=== PATIENT | male | born 1935 | race Two or more races ===

== ENCOUNTER 2021-08-02 09:36 | Emergency (ER) | payer OTHER ==
[~2021-08-02] VITALS: Ht 180.3 cm; Wt 90.7 kg
[2021-08-02] MEDS ORDERED: JANTOVEN7.5 MG PO (10:07)
[2021-08-02] MEDS ORDERED: GLIMEPIRIDE4 M1 PO (10:07)
[2021-08-02] MEDS ORDERED: COZAAR100 MG PO (10:08)
[2021-08-02] MEDS ORDERED: JENTADUETO 2.51 EAC2 PO (10:08)
[2021-08-02] MEDS ORDERED: SIMVASTATIN20 MG PO (10:08)
[2021-08-02] MEDS ORDERED: FINASTERIDE5 MG PO (10:09)
== END 2021-08-02 11:57 | disposition home or self-care (01) ==
LOC: ER 09:36
DX: L03.116 Cellulitis of left lower limb (principal); S93.492A Sprain of other ligament of left ankle, initial encounter; E11.9 Type 2 diabetes mellitus without complications; Z79.899 Other long term (current) drug therapy; I10 Essential (primary) hypertension

== ENCOUNTER 2021-12-19 19:38 | Emergency (ER) | payer OTHER ==
[~2021-12-19] VITALS: Ht 180.3 cm; Wt 89.4 kg
[~2021-12-19 19:38] MED LIST: COZAAR100 MG PO; FINASTERIDE5 MG PO; GLIMEPIRIDE4 M1 PO; JANTOVEN7.5 MG PO; JENTADUETO 2.51 EAC2 PO; SIMVASTATIN20 MG PO
[2021-12-19] MEDS ORDERED: GLIPIZIDE ER5 MG PO (20:38)
== END 2021-12-20 00:13 | disposition home or self-care (01) ==
LOC: ER 19:38
DX: I89.0 Lymphedema, not elsewhere classified (principal)

== ENCOUNTER 2023-02-13 18:15 | Emergency (ER) | payer OTHER ==
[~2023-02-13] VITALS: Ht 180.3 cm; Wt 79.8 kg
[~2023-02-13 18:15] MED LIST changes: +COZAAR50 MG PO; +ELIQUIS2.5 MG PO; +GLIPIZIDE ER5 MG PO; +HYDRALAZIN20 MG/1 ML IM
== END 2023-02-13 20:55 | disposition home or self-care (01) ==
LOC: ER 18:15
DX: I10 Essential (primary) hypertension (principal); Z87.438 Personal history of other diseases of male genital organs

== ENCOUNTER → 2023-06-01 | Emergency (ER) | payer OTHER ==
[~2023-06-01] VITALS: Ht 180.3 cm; Wt 83.5 kg
[~2023-06-01] MED LIST changes: +0.9 % SODIUM CHLORIDE 500 ML IV STA; +KETOROLAC TROMETHAMINE 30 MG VIAL IV STA; +MEPERIDINE HCL/PF 50 MG/ML VIAL IM STA; +PROMETHAZINE HCL 50 MG/ML AMPUL IM STA
[2023-06-01 17:07] LABS: HEMATOCRIT 36.7 % (39.0-48.0); HEMOGLOBIN 12.2 g/dL (13-16.00); MEAN CELL VOLUME 86.3 fL (80.0-100.00); MEAN CORPUSCULAR HEMOGLOBIN 28.8 pg (27.00-32.0); MEAN CORPUSCULAR HGB CONC 33.3 g/dl (32.0-36.0); PLATELET COUNT 260 K/uL (150-450); RED BLOOD COUNT 4.26 M/uL (4.00-6.00); RED CELL DISTRIBUTION WIDTH 14.2 % (11.5-14.5)
[2023-06-01 17:20] LABS: INR 1.05
[2023-06-01 17:22] LABS: ALBUMIN 3.6 gm/dL (3.4-5.0); BILIRUBIN TOTAL 0.7 mg/dL (0.3-1.2); CALCIUM 8.7 mg/dL (8.5-10.1); CREATININE SERUM 1.28 mg/dL (0.70-1.30); GFR 53.29; GLOBULINA 4.2 G/DL (2.4-3.5); POTASSIUM 4.41 mEq/L (3.5-5.1); TOTAL PROTEIN 7.8 gm/dL (6.4-8.2)
== END | disposition left against medical advice (07) ==
LOC: ER 13:05
DX: R31.9 Hematuria, unspecified (principal); R10.31 Right lower quadrant pain; K40.90 Unilateral inguinal hernia, without obstruction or gangrene, not specified as recurrent
CPT/HCPCS: 36415; 74176; 96365; 96366; 96372; 99284; J1885; J2250; J3490; J7042

== ENCOUNTER 2023-06-05 18:02 | Inpatient (IN) | payer OTHER ==
[~2023-06-05] VITALS: Ht 180.3 cm; Wt 79.8 kg
[~2023-06-05 18:02] MED LIST changes: -0.9 % SODIUM CHLORIDE 500 ML IV STA; -KETOROLAC TROMETHAMINE 30 MG VIAL IV STA; -MEPERIDINE HCL/PF 50 MG/ML VIAL IM STA; -PROMETHAZINE HCL 50 MG/ML AMPUL IM STA
[2023-06-05] MEDS ORDERED: 0.9 % SODIUM CHLORIDE 1,000 ML IV SCH ×2 (18:25→22:15)
[2023-06-05] MEDS ORDERED: CIPROFLOXACIN IN 5 % DEXTROSE 400 MG/200 ML PIGGYBAG IV ONE (18:30)
[2023-06-05] MEDS ORDERED: TAMSULOSIN HCL 0.4 MG CAP PO ONE (18:30)
[2023-06-05 19:32] LABS: MEAN CELL VOLUME 89.3 fL (80.0-100.00); MEAN CORPUSCULAR HGB CONC 33.3 g/dl (32.0-36.0); RED BLOOD COUNT 2.18 M/uL (4.00-6.00)
[2023-06-05 19:40] LABS: MEAN CORPUSCULAR HEMOGLOBIN 29.8 pg (27.00-32.0)
[2023-06-05 19:41] LABS: HEMOGLOBIN 6.5 g/dL (13-16.00)
[2023-06-05 19:42] LABS: HEMATOCRIT 19.5 % (39.0-48.0)
[2023-06-05 19:43] LABS: INR 1.05; PARTIAL THROMBOPLASTIN TIME 23.9 SECONDS (22.0-34.0)
[2023-06-05 19:45] LABS: CREATININE SERUM 2.27 mg/dL (0.70-1.30); GFR 27.51; POTASSIUM 4.65 mEq/L (3.5-5.1)
[2023-06-05 20:03] LABS: PLATELET COUNT 254 K/uL (150-450)
[2023-06-05] MEDS ORDERED: FAMOTIDINE/PF 20 MG/2 ML VIAL IV SCH (22:02)
[2023-06-05] MEDS ORDERED: CEFTRIAXONE SODIUM 2,000 MG in 0.9 % SODIUM CHLORIDE 100 ML IV SCH (22:14)
[2023-06-05] MEDS ORDERED: ONDANSETRON HCL 4 MG in 0.9 % SODIUM CHLORIDE 50 ML IV PRN (22:15)
[2023-06-05] MEDS ORDERED: DEXTROSE 50 % IN WATER 0.5 G/ML DISP.SYRIN IV PRN (22:15)
[2023-06-05] MEDS ORDERED: INSULIN LISPRO 1,000 UNIT/10 ML UNITS SUBCUTANEO PRN (22:15)
[2023-06-05] MEDS ORDERED: ENALAPRILAT DIHYDRATE 1.25 MG/ML VIAL IV PRN (22:30)
[2023-06-05 23:47] LABS: MAGNESIUM 2.6 mg/dL (1.8-2.4)
[2023-06-06] LABS: C-REACTIVE PROTEIN 3.68 MG/DL (0.00-0.29); CKMB 6.5 NG/ML (0.5-3.6)
[2023-06-06 03:46] LABS: URINE APPEARANCE Turbid; URINE BILIRRUBIN Small (NEGATIVE); URINE BLOOD Trace; URINE COLOR Red; URINE GLUCOSE Negative (NEGATIVE); URINE LEUKOCYTE Large; URINE NITRATE Positive; URINE PROTEIN Trace (NEGATIVE); URINE UROBILINOGEN 0.2 E.U./dl
[2023-06-06 04:05] LABS: URINE RBC LOADED /HPF
[2023-06-06 04:09] LABS: URINE BACTERIA MANY
[2023-06-06 04:12] LABS: URINE WBC 31-40 /hpf
[2023-06-06] MEDS ORDERED: INSULIN GLARGINE,HUM.REC.ANLOG 1,000 UNITS/10 ML UNITS SUBCUTANEO SCH (14:25)
[2023-06-06] MEDS ORDERED: HALOPERIDOL LACTATE 5 MG/ML AMPUL IV PRN (20:00)
[2023-06-07] MEDS ORDERED: CHLORHEXIDINE GLUCONATE 120 ML BOTTLE TOP ONE (08:49)
[2023-06-07 17:12] LABS: HEMATOCRIT 27.2 % (39.0-48.0); MEAN CORPUSCULAR HGB CONC 33.8 g/dl (32.0-36.0); PLATELET COUNT 250 K/uL (150-450); RED BLOOD COUNT 3.13 M/uL (4.00-6.00); RED CELL DISTRIBUTION WIDTH 15.1 % (11.5-14.5)
[2023-06-07 17:51] LABS: HEMOGLOBIN 9.2 g/dL (13-16.00); MEAN CORPUSCULAR HEMOGLOBIN 29.3 pg (27.00-32.0)
[2023-06-08] MEDS ORDERED: hydrALAZINE HCL 20 MG VIAL IV PRN (04:30)
[2023-06-08] MEDS ORDERED: FAMOTIDINE/PF 20 MG/2 ML VIAL IV SCH (09:00)
[2023-06-08] MEDS ORDERED: hydrALAZINE HCL 25 MG TABLET PO SCH ×2 (10:11→21:00)
[2023-06-08 12:07] LABS: HEMATOCRIT 29.3 % (39.0-48.0); MEAN CELL VOLUME 86.8 fL (80.0-100.00); MEAN CORPUSCULAR HEMOGLOBIN 29.5 pg (27.00-32.0); PLATELET COUNT 239 K/uL (150-450); RED BLOOD COUNT 3.38 M/uL (4.00-6.00); RED CELL DISTRIBUTION WIDTH 15.4 % (11.5-14.5)
[2023-06-08 12:39] LABS: ALBUMIN 2.4 gm/dL (3.4-5.0); BILIRUBIN TOTAL 0.44 mg/dL (0.3-1.2); CALCIUM 7.9 mg/dL (8.5-10.1); CREATININE SERUM 1.32 mg/dL (0.70-1.30); GFR 51.43; GLOBULINA 2.9 G/DL (2.4-3.5); POTASSIUM 3.91 mEq/L (3.5-5.1); TOTAL PROTEIN 5.3 gm/dL (6.4-8.2)
[2023-06-08] MEDS ORDERED: SODIUM CHLORIDE 0.45 % 1,000 ML IV SCH (18:00)
[2023-06-09 07:08] LABS: HEMATOCRIT 27.2 % (39.0-48.0); MEAN CELL VOLUME 87.7 fL (80.0-100.00); MEAN CORPUSCULAR HGB CONC 34.5 g/dl (32.0-36.0); PLATELET COUNT 232 K/uL (150-450); RED CELL DISTRIBUTION WIDTH 14.9 % (11.5-14.5)
[2023-06-09 07:12] LABS: HEMOGLOBIN 9.4 g/dL (13-16.00); MEAN CORPUSCULAR HEMOGLOBIN 30.3 pg (27.00-32.0)
[2023-06-09 07:35] LABS: ALBUMIN 2.3 gm/dL (3.4-5.0); CALCIUM 7.6 mg/dL (8.5-10.1); CREATININE SERUM 1.03 mg/dL (0.70-1.30); GFR 68.47; PHOSPHOROUS 2.6 mg/dL (2.5-4.9); POTASSIUM 3.96 mEq/L (3.5-5.1)
[2023-06-09] MEDS ORDERED: AMLODIPINE BESYLATE 5 MG TABLET PO SCH (18:23)
[2023-06-10 06:33] LABS: HEMATOCRIT 26.8 % (39.0-48.0); MEAN CELL VOLUME 88.1 fL (80.0-100.00); MEAN CORPUSCULAR HGB CONC 34.4 g/dl (32.0-36.0); PLATELET COUNT 246 K/uL (150-450); RED BLOOD COUNT 3.04 M/uL (4.00-6.00)
[2023-06-10 06:43] LABS: HEMOGLOBIN 9.2 g/dL (13-16.00); MEAN CORPUSCULAR HEMOGLOBIN 30.2 pg (27.00-32.0)
[2023-06-10 07:05] LABS: ALBUMIN 2.2 gm/dL (3.4-5.0); CALCIUM 7.8 mg/dL (8.5-10.1); CREATININE SERUM 0.99 mg/dL (0.70-1.30); GFR 71.67; PHOSPHOROUS 2.6 mg/dL (2.5-4.9); POTASSIUM 4.17 mEq/L (3.5-5.1)
[2023-06-10] MEDS ORDERED: FAMOTIDINE/PF 20 MG/2 ML VIAL IV SCH (17:00)
[2023-06-10] MEDS ORDERED: AMLODIPINE BESYLATE 5 MG TABLET PO SCH (17:00)
[2023-06-12] MEDS ORDERED: INSULIN LISPRO 1,000 UNIT/10 ML UNITS SUBCUTANEO PRN (12:30)
[2023-06-12] MEDS ORDERED: DEXTROSE 50 % IN WATER 0.5 G/ML DISP.SYRIN IV PRN (12:30)
[2023-06-13 11:58] LABS: HEMATOCRIT 28.9 % (39.0-48.0); HEMOGLOBIN 9.4 g/dL (13-16.00); MEAN CELL VOLUME 88.5 fL (80.0-100.00); MEAN CORPUSCULAR HEMOGLOBIN 28.7 pg (27.00-32.0); MEAN CORPUSCULAR HGB CONC 32.4 g/dl (32.0-36.0); PLATELET COUNT 248 K/uL (150-450); RED BLOOD COUNT 3.26 M/uL (4.00-6.00); RED CELL DISTRIBUTION WIDTH 15.3 % (11.5-14.5)
[2023-06-14] MEDS ORDERED: CEFTRIAXONE SODIUM 2,000 MG in 0.9 % SODIUM CHLORIDE 100 ML IV SCH (04:46)
[2023-06-14 06:23] LABS: PH,URINE 7.5 (5.0-8.0); URINE APPEARANCE Clear; URINE BILIRRUBIN Negative (NEGATIVE); URINE BLOOD Moderate; URINE COLOR Yellow; URINE GLUCOSE Negative (NEGATIVE); URINE LEUKOCYTE Moderate; URINE NITRATE Negative; URINE PROTEIN 30 (NEGATIVE); URINE UROBILINOGEN 0.2 E.U./dl
[2023-06-14 06:25] LABS: URINE EPITHELIAL CELLS 2.6 uL (0.0-38.8); URINE RBC 143.4 uL (0.0-20.8); URINE WBC 138.3 uL (0.0-23.2)
[2023-06-14 06:27] LABS: HEMATOCRIT 28.4 % (39.0-48.0); MEAN CELL VOLUME 87.5 fL (80.0-100.00); MEAN CORPUSCULAR HEMOGLOBIN 29.2 pg (27.00-32.0); MEAN CORPUSCULAR HGB CONC 33.4 g/dl (32.0-36.0); PLATELET COUNT 258 K/uL (150-450); RED BLOOD COUNT 3.25 M/uL (4.00-6.00); RED CELL DISTRIBUTION WIDTH 15.3 % (11.5-14.5)
[2023-06-14 06:29] LABS: HEMOGLOBIN 9.5 g/dL (13-16.00)
[2023-06-14] MEDS ORDERED: DOCUSATE CALCIUM 240 MG CAPSULE PO SCH (13:06)
[2023-06-14] MEDS ORDERED: FAMOtidine 20 MG TABLET PO SCH (17:00)
[2023-06-15] MEDS ORDERED: LACTULOSE 20 G/30 ML BLIST.PACK PO SCH (15:52)
[2023-06-15] MEDS ORDERED: MAGNESIUM HYDROXIDE 30 ML BLIST.PACK PO ONE (16:00)
[2023-06-15] MEDS ORDERED: MINERAL OIL 30 ML BLIST.PACK PO ONE (16:00)
[2023-06-16 05:07] LABS: HEMATOCRIT 30.4 % (39.0-48.0); MEAN CELL VOLUME 89.9 fL (80.0-100.00); MEAN CORPUSCULAR HEMOGLOBIN 29.8 pg (27.00-32.0); MEAN CORPUSCULAR HGB CONC 33.2 g/dl (32.0-36.0); PLATELET COUNT 269 K/uL (150-450); RED BLOOD COUNT 3.38 M/uL (4.00-6.00); RED CELL DISTRIBUTION WIDTH 15.2 % (11.5-14.5)
[2023-06-16 05:29] LABS: HEMOGLOBIN 10.1 g/dL (13-16.00)
[2023-06-16 05:38] LABS: CALCIUM 7.9 mg/dL (8.5-10.1); CREATININE SERUM 1.2 mg/dL (0.70-1.30); GFR 57.41; POTASSIUM 4.34 mEq/L (3.5-5.1)
[2023-06-17 06:12] LABS: HEMATOCRIT 29.2 % (39.0-48.0); HEMOGLOBIN 9.6 g/dL (13-16.00); MEAN CELL VOLUME 89.4 fL (80.0-100.00); MEAN CORPUSCULAR HEMOGLOBIN 29.3 pg (27.00-32.0); MEAN CORPUSCULAR HGB CONC 32.8 g/dl (32.0-36.0); PLATELET COUNT 256 K/uL (150-450); RED BLOOD COUNT 3.26 M/uL (4.00-6.00); RED CELL DISTRIBUTION WIDTH 15.1 % (11.5-14.5)
[2023-06-18] MEDS ORDERED: GUAIFENESIN/DEXTROMETHORPHAN 100 MG/5 ML ML PO SCH (18:00)
[2023-06-18] MEDS ORDERED: SODIUM CHLORIDE FOR INHALATION 1 VIAL.NEB IH SCH (21:00)
== END 2023-06-20 12:49 | disposition home or self-care (01) | DRG 690 ==
LOC: ER 18:02 → ICU-2 22:01 → ICU 06-06 21:39 → MEDI 06-08 19:26
PROVIDERS: Emergency Medicine; General Practice; Internal Medicine Infectious Disease; Internal Medicine Nephrology; ADMIT Internal Medicine; ATTEND Internal Medicine
PROC: BW21ZZZ Computerized Tomography (CT Scan) of Abdomen and Pelvis (ICD-10-PCS; principal; 2023-06-05)
PROC: 4A12X4Z Monitoring of Cardiac Electrical Activity, External Approach (ICD-10-PCS; 2023-06-08)
DX: N39.0 Urinary tract infection, site not specified (principal); N17.9 Acute kidney failure, unspecified; E86.0 Dehydration; N13.9 Obstructive and reflux uropathy, unspecified; D64.9 Anemia, unspecified; R31.0 Gross hematuria; I12.9 Hypertensive chronic kidney disease with stage 1 through stage 4 chronic kidney disease, or unspecified chronic kidney disease; E11.22 Type 2 diabetes mellitus with diabetic chronic kidney disease; N18.9 Chronic kidney disease, unspecified; Z79.4 Long term (current) use of insulin

== ENCOUNTER 2024-09-20 08:05 | Inpatient (IN) | payer OTHER ==
[~2024-09-20] VITALS: Ht 180.3 cm; Wt 90.7 kg
[2024-09-20] MEDS ORDERED: GLIPIZIDE XL5 MG (08:15)
[2024-09-20] MEDS ORDERED: PROPECIA1 MG PO (08:16)
[2024-09-20] MEDS ORDERED: AMLODIPINE-OLM1 EAC2 (08:16)
[2024-09-20] MEDS ORDERED: FAMOTIDINE10 MG PO (08:17)
[2024-09-20] MEDS ORDERED: PROSTATE PQ TA1 EACH PO (08:18)
[2024-09-20] MEDS ORDERED: LASIX20 MG (08:18)
[2024-09-20] MEDS ORDERED: TAMS0.4C PO (08:18)
[2024-09-20] MEDS ORDERED: 0.9 % SODIUM CHLORIDE 1,000 ML IV SCH ×2 (08:45→16:30)
[2024-09-20 09:56] LABS: BASO % 0.3 % (0.1-1.2); EOS # 0.06 (0.04-0.54); EOS % 0.4 % (0.7-7.0); LYMPH # 1.08 (1.18-3.74); LYMPH % 7.2 % (19.3-53.1); MEAN PLATELET VOLUME 10.10 fl (9.4-12.4); MONO # 0.67 (0.24-0.82); MONO % 4.5 % (4.7-12.5); NEUT # 13.14 (1.56-6.13); NEUT % 87.2 % (34.0-71.1); RED CELL DISTRIBUTION WIDTH 14.9 % (11.6-14.4)
[2024-09-20 10:28] LABS: BUN CREA RATIO 19.0 (7.0-25.0); CREATININE SERUM 1.59 mg/dL (0.70-1.30); GFR 41.39; GLUCOSE FASTING 183.0 mg/dL (65-100); OSMOLALITY SERUM 296.0 MOSM/KG (275-295)
[2024-09-20 12:24] LABS: URINE APPEARANCE Clear; URINE BILIRRUBIN Negative (NEGATIVE); URINE BLOOD Negative; URINE COLOR Dark Yellow; URINE GLUCOSE Negative (NEGATIVE); URINE KETONE Trace (NEGATIVE); URINE LEUKOCYTE Trace; URINE NITRATE Negative; URINE UROBILINOGEN 1.0 E.U./dl
[2024-09-20 12:28] LABS: URINE BACTERIA 129.5 uL (0.0-1933); URINE CAST 2.34 uL (0.0-1.40); URINE EPITHELIAL CELLS 12.7 uL (0.0-38.8); URINE RBC 10.1 uL (0.0-20.8); URINE WBC 20.5 uL (0.0-23.2)
[2024-09-20] MEDS ORDERED: PIPERACILLIN/TAZOBACTAM SODIUM 3.375 GM VIAL IV ONE ×2 (12:30→14:56)
[2024-09-20 13:14] LABS: URINE PROTEIN 100 (NEGATIVE)
[2024-09-20] MEDS ORDERED: LIDOCAINE HCL VISCOUS 20MG/ML BLIST 15ML MM ONE (13:47)
[2024-09-20] MEDS ORDERED: MORPHINE SULFATE 2 MG/ML CARTRIDGE IV PRN (16:30)
[2024-09-20] MEDS ORDERED: ONDANSETRON HCL 4 MG in 0.9 % SODIUM CHLORIDE 50 ML IV PRN (16:30)
[2024-09-20 17:55] LABS: INR 1.08
[2024-09-20] MEDS ORDERED: PIPERACILLIN/TAZOBACTAM SODIUM 2.25 GM in DEXTROSE 5 % IN WATER 50 ML IV SCH (18:00)
[2024-09-20] MEDS ORDERED: hydrALAZINE HCL 20 MG VIAL IV SCH (18:00)
[2024-09-20 18:03] VITALS: BP 167/78; O2SAT 94
[2024-09-20] MEDS ORDERED: hydrALAZINE HCL 20 MG VIAL ONE (20:35)
[2024-09-21] MEDS ORDERED: FAMOTIDINE/PF 20 MG in 0.9 % SODIUM CHLORIDE 8 ML IV PUSH SCH (09:00)
[2024-09-21 09:50] VITALS: BP 134/81; O2SAT 93
[2024-09-21 16:47] VITALS: BP 160/80; O2SAT 92
[2024-09-22 01:25] VITALS: BP 156/75; O2SAT 96
[2024-09-22 08:00] VITALS: BP 109/70; O2SAT 91
[2024-09-22 16:00] VITALS: BP 160/80
[2024-09-22 17:07] LABS: ALT/SGPT 21.0 U/L (12-78); AST/SGOT 41.0 U/L (15-37); BILIRUBIN TOTAL 0.54 mg/dL (0.3-1.2); BUN CREA RATIO 19.0 (7.0-25.0); CREATININE SERUM 1.7 mg/dL (0.70-1.30); GFR 38.31; GLOBULINA 4.0 G/DL (2.4-3.5); GLUCOSE FASTING 169.0 mg/dL (65-100); OSMOLALITY SERUM 300.0 MOSM/KG (275-295)
[2024-09-23 01:11] VITALS: BP 129/65; O2SAT 94
[2024-09-23 08:00] VITALS: BP 138/70; O2SAT 96
[2024-09-23 17:00] VITALS: BP 131/82; O2SAT 91
[2024-09-24 00:50] VITALS: BP 156/69; O2SAT 93
[2024-09-24 08:00] VITALS: BP 150/86; O2SAT 92
[2024-09-24 11:43] LABS: BUN CREA RATIO 12.0 (7.0-25.0); CREATININE SERUM 1.51 mg/dL (0.70-1.30); GFR 43.93; GLUCOSE FASTING 111.0 mg/dL (65-100); OSMOLALITY SERUM 288.0 MOSM/KG (275-295)
[2024-09-24] MEDS ORDERED: SODIUM CHLORIDE 0.45 % 1,000 ML IV SCH (15:30)
[2024-09-24 17:01] VITALS: BP 160/80; O2SAT 95
[2024-09-25 00:48] VITALS: BP 142/66; O2SAT 95
[2024-09-25 08:00] VITALS: BP 139/70; O2SAT 92
== END 2024-09-25 14:50 | disposition home or self-care (01) | DRG 389 ==
LOC: ER 08:11 → SURG 16:49 → SEC-K 16:49 → SURG 09-21 00:54
PROVIDERS: Emergency Medicine; General Practice; Internal Medicine; ADMIT Student in an Organized Health Care Education/Training Program; ATTEND Student in an Organized Health Care Education/Training Program
PROC: BW21ZZZ Computerized Tomography (CT Scan) of Abdomen and Pelvis (ICD-10-PCS; principal; 2024-09-20)
DX: K56.600 Partial intestinal obstruction, unspecified as to cause (principal); N17.9 Acute kidney failure, unspecified; K40.90 Unilateral inguinal hernia, without obstruction or gangrene, not specified as recurrent; Z86.718 Personal history of other venous thrombosis and embolism; I12.9 Hypertensive chronic kidney disease with stage 1 through stage 4 chronic kidney disease, or unspecified chronic kidney disease; E11.22 Type 2 diabetes mellitus with diabetic chronic kidney disease; N18.9 Chronic kidney disease, unspecified; Z79.4 Long term (current) use of insulin